=== PATIENT | female | born 1990 | race Two or more races ===

== ENCOUNTER 2022-03-13 21:04 | Emergency (ER) | payer MEDICAID ==
[~2022-03-13] VITALS: Ht 157.5 cm; Wt 72.6 kg
[2022-03-13 21:04] VITALS: BP 117/84
[2022-03-13] MEDS ORDERED: ACETAMINOPHEN 325 MG TAB PO ONE (23:00)
[2022-03-14] MEDS ORDERED: ALBUAER3 IN (01:08)
[2022-03-14] MEDS ORDERED: AZIT250T9 PO (01:08)
[2022-03-14] MEDS ORDERED: PRED20TA2 PO (01:08)
== END 2022-03-14 01:15 | disposition home or self-care (01) ==
LOC: ER 21:04
DX: J20.9 Acute bronchitis, unspecified (principal); J10.1 Influenza due to other identified influenza virus with other respiratory manifestations; Z88.5 Allergy status to narcotic agent; Z20.822 Contact with and (suspected) exposure to COVID-19
CPT/HCPCS: 36415; 71045; 87070; 87804; 87880